=== PATIENT | female | born 1950 | race American Indian/Alaskan Native ===

== ENCOUNTER 2017-09-17 08:53 | Emergency (ER) | payer BC, OTHER ==
[~2017-09-17] VITALS: Ht 175.3 cm; Wt 95.2 kg
[~2017-09-17 08:53] MED LIST: ALTACE10 MG PO; DICLOFENAC SODI25 MG PO; FERROUS SULFAT325 MG PO; GLUCOPHAGE1000 MG PO; LANTUS100 UNIT/1 SUB-Q; METFORMIN HCL500 MG PO; METHOCARBAMOL750 MG PO; PERCOCET 5-3251 EACH PO; PRENATABS RX T1 EACH PO; PRILOSEC20 MG PO; RAMIPRIL5 MG PO; VITAMIN C250 MG PO; ZOLOFT25 MG PO; ZOLOFT50 MG PO
[2017-09-17] MEDS ORDERED: CEPHALEXIN250 MG PO (09:18)
[2017-09-17] MEDS ORDERED: JANUMET XR 50-1 EAC1 PO (09:19)
[2017-09-17] MEDS ORDERED: AMLODIPINE BESYL5 MG PO (09:20)
[2017-09-17] MEDS ORDERED: ALLERGY RELIEF60 MG PO (09:20)
[2017-09-17] MEDS ORDERED: HYDROCHLOROTH12.5 M1 PO (09:21)
[2017-09-17] MEDS ORDERED: VITAMIN D35000 UNI1 PO (09:22)
[2017-09-17] MEDS ORDERED: HUMALOG100 UNITS/ SUB-Q (09:24)
[2017-09-17] MEDS ORDERED: LIDODERM1 EACH TOP (16:05)
[2017-09-17] MEDS ORDERED: NAPROSYN500 MG PO (16:05)
[2017-09-17] MEDS ORDERED: OXYCODONE HCL5 MG PO (16:05)
[2017-09-17] MEDS ORDERED: CYCLOBENZAPRINE5 MG PO (16:05)
--- NOTE | 2017-09-18 22:34 | EKG ---
[facility] [address] [facility] [place] [address] Signed Normal sinus rhythm Low voltage QRS Borderline ECG No previous ECGs available Confirmed by DONG GARCIA MD ([id number] on 09/18/2017 10:33:50 PM Electronically Signed By: DONG GARCIA MD 09/18/17 2234 PATIENT NAME: AGNIESZKA ZAPIEN Electrocardiogram DATE OF : 54 PHYSICIAN: DONG GARCIA MD REPORT #: [id number] REPORT IS CONFIDENTIAL AND NOT TO BE RELEASED WITHOUT AUTHORIZATION
== END 2017-09-17 16:25 | disposition home or self-care (01) ==
LOC: ED 08:53
DX: R10.12 Left upper quadrant pain (principal); E11.9 Type 2 diabetes mellitus without complications; I10 Essential (primary) hypertension; D64.9 Anemia, unspecified; Z90.710 Acquired absence of both cervix and uterus; Z90.49 Acquired absence of other specified parts of digestive tract; Z88.8 Allergy status to other drugs, medicaments and biological substances; Z79.4 Long term (current) use of insulin; Z98.890 Other specified postprocedural states
CPT/HCPCS: 71020; 74177; 80053; 81001; 84484; 85025; 85379; 93005; 93010; 96361; 96374; 96375; 99284; J1170; J2405; J3010; J7030; Q9967

== ENCOUNTER 2018-11-10 03:30 | Emergency (ER) | payer BC, OTHER ==
[~2018-11-10] VITALS: Ht 175.3 cm; Wt 95.2 kg
[~2018-11-10 03:30] MED LIST changes: +ALLERGY RELIEF60 MG PO; +AMLODIPINE BESYL5 MG PO; +CEPHALEXIN250 MG PO; +CYCLOBENZAPRINE5 MG PO; +HUMALOG100 UNITS/ SUB-Q; +HYDROCHLOROTH12.5 M1 PO; +JANUMET XR 50-1 EAC1 PO; +LIDODERM1 EACH TOP; +NAPROSYN500 MG PO; +OXYCODONE HCL5 MG PO; +VITAMIN D35000 UNI1 PO
[2018-11-10] MEDS ORDERED: PYRIDIUM200 MG PO (05:13)
[2018-11-10] MEDS ORDERED: CEPHALEXIN500 MG PO (05:13)
== END 2018-11-10 05:26 | disposition home or self-care (01) ==
LOC: ED 03:30
DX: N39.0 Urinary tract infection, site not specified (principal); E11.9 Type 2 diabetes mellitus without complications; I10 Essential (primary) hypertension; D64.9 Anemia, unspecified; Z90.710 Acquired absence of both cervix and uterus; Z88.8 Allergy status to other drugs, medicaments and biological substances; Z79.4 Long term (current) use of insulin; Z79.899 Other long term (current) drug therapy
CPT/HCPCS: 81001; 87077; 87088; 87186; 99283

== ENCOUNTER 2019-04-22 17:30 | Emergency (ER) | payer BC, OTHER ==
[~2019-04-22] VITALS: Ht 175.3 cm; Wt 95.2 kg
[~2019-04-22 17:30] MED LIST changes: +CEPHALEXIN500 MG PO; +PYRIDIUM200 MG PO
[2019-04-22] MEDS ORDERED: ALL DAY ALLERGY10 M1 PO (17:52)
[2019-04-22] MEDS ORDERED: OMEPRAZOLE20 MG PO (17:53)
--- NOTE | 2019-04-23 14:36 | EKG ---
[facility] [address] [facility] [place], [place] [address] Signed Normal sinus rhythm Low voltage QRS Borderline ECG When compared with ECG of 17-SEP-2017 14:58, No significant change was found Confirmed by TELLY PYLE DO ([id number]) on 04/23/2019 2:36:03 PM Electronically Signed By: TELLY PYLE DO 04/23/19 1436 PATIENT NAME: AGNIESZKA ZAPIEN Electrocardiogram DATE OF : 54 PHYSICIAN: TELLY PYLE DO REPORT #: [id number] REPORT IS CONFIDENTIAL AND NOT TO BE RELEASED WITHOUT AUTHORIZATION
== END 2019-04-22 19:28 | disposition home or self-care (01) ==
LOC: ED 17:30
DX: R07.89 Other chest pain (principal); R00.2 Palpitations; I10 Essential (primary) hypertension; E11.9 Type 2 diabetes mellitus without complications; Z90.710 Acquired absence of both cervix and uterus; Z90.49 Acquired absence of other specified parts of digestive tract; Z88.8 Allergy status to other drugs, medicaments and biological substances; Z79.4 Long term (current) use of insulin; Z79.899 Other long term (current) drug therapy
CPT/HCPCS: 71045; 80053; 83735; 84484; 85025; 93005; 93010; 99285-25